=== PATIENT | female | born 1980 ===

== ENCOUNTER 2022-06-08 06:10 | Inpatient (IN) ==
[~2022-06-08 06:10] MED LIST: Buffered Lidocaine 1% SYRIN 1 ml INTRADERM ONE; Lactated Ringers 1000 ml BAG 1,000 ML IV SCH; Sodium Citrate/Citric Acid LIQ 15 ML UDC PO ONE
[2022-06-08] MEDS ORDERED: Rocuronium 50 mg VIAL 10 mg/ml 5 ml VIAL (50 mg) ONE (06:46)
[2022-06-08] MEDS ORDERED: Dexamethasone IV 4 MG/ML VIAL 1 ml VIAL ONE ×2 (06:46→06:58)
[2022-06-08] MEDS ORDERED: fentaNYL 250 mcg/5 ml 50 MCG/ML 5 ml VIAL (250 MCG) ONE (06:46)
[2022-06-08] MEDS ORDERED: Ondansetron 4 mg VIAL 2 MG/ML 2 ml VIAL ONE ×2 (06:46→06:58)
[2022-06-08] MEDS ORDERED: Lidocaine 2% PF 5 ML VIAL ONE (06:46)
[2022-06-08] MEDS ORDERED: Propofol 10 MG/ML 20 ML BTL ONE ×4 (06:46→12:03)
[2022-06-08] MEDS ORDERED: Midazolam 2 mg/2 ml VIAL 1 mg/ml 2 ml VIAL (2 mg) ONE (06:46)
[2022-06-08] MEDS ORDERED: ceFAZolin 2 GM in NS PREMIX 2 GM/100 ML BAG IVPB ONE (06:58)
[2022-06-08] MEDS ORDERED: Heparin 5000 UNITS/ML 1 mL VIAL ONE (06:58)
[2022-06-08] MEDS ORDERED: Scopolamine 1 mg/72hr PATCH ONE (06:58)
[2022-06-08] MEDS ORDERED: Gentamicin ADULT 40 MG/ML VIAL (2 ML VIAL = 80 MG) ONE ×2 (07:09→11:47)
[2022-06-08] MEDS ORDERED: Bupivacaine 0.25% SDV 30 ML ONE (07:10)
[2022-06-08] MEDS ORDERED: ceFAZolin VIAL VIAL ONE ×4 (07:10→11:48)
[2022-06-08] MEDS ORDERED: Povidone Iodine 5% OPTH 30 ML BTL ONE (07:10)
[2022-06-08] MEDS ORDERED: Bupivacaine 0.5% SDV PF 30ML VIAL ONE (07:10)
[2022-06-08] MEDS ORDERED: ISOSULFAN BLUE 1% 5 ML VIAL 10 MG/ML SUBCUT ONE (07:18)
[2022-06-08] MEDS ORDERED: Sodium Citrate/Citric Acid LIQ 15 ML UDC ONE (07:27)
[2022-06-08] MEDS ORDERED: Ketamine HCL 50 mg/ml 10 ml VIAL (500 MG) ONE (07:40)
[2022-06-08] MEDS ORDERED: HYDROmorphone 1 MG/1 ML SYRINGE IV PRN (08:06)
[2022-06-08] MEDS ORDERED: Naloxone 0.4 mg VIAL 0.4 mg/ml 1 ml VIAL IV PRN (08:06)
[2022-06-08] MEDS ORDERED: Prochlorperazine 5 mg/ml 2 ml VIAL (10 mg) IV PRN (08:06)
[2022-06-08] MEDS ORDERED: Acetaminophen IV 1 GM/100ML 1,000 MG/100 ML BAG IV ONE (10:48)
[2022-06-08] MEDS ORDERED: HYDROmorphone 0.5 MG/0.5 ML SYRINGE ONE (11:27)
[2022-06-08] MEDS ORDERED: Morphine 2 MG/ML SYRINGE IV PRN (11:32)
[2022-06-08] MEDS ORDERED: Benzocaine/Menthol LOZ PO PRN (11:33)
[2022-06-08] MEDS ORDERED: Scopolamine 1 mg/72hr PATCH TRANSDERM SCH (12:00)
[2022-06-08] MEDS ORDERED: Prochlorperazine 5 mg/ml 2 ml VIAL (10 mg) ONE (13:19)
[2022-06-08] MEDS: ceFAZolin VIAL 2 GM in NS 0.9% 100 ml BAG 100 ML IVPB SCH (16:38)
[2022-06-08] MEDS: Heparin 5000 UNITS/ML 1 mL VIAL SUBCUT SCH ×2 (18:08→22:21)
[2022-06-08] MEDS: HYDROcodone/ACETAMIN 5/325 mg TAB PO PRN (18:20)
[2022-06-09] MEDS: ceFAZolin VIAL 2 GM in NS 0.9% 100 ml BAG 100 ML IVPB SCH ×2 (00:36→08:45)
[2022-06-09] MEDS: HYDROcodone/ACETAMIN 5/325 mg TAB PO PRN (07:01)
[2022-06-09] MEDS: Heparin 5000 UNITS/ML 1 mL VIAL SUBCUT SCH (07:02)
[2022-06-09 12:11] VITALS: BP 97/61
[2022-06-09] MEDS ORDERED: ceFAZolin 2 GM PREMIX 2 GM/50 ML BAG IV SCH (16:00)
== END 2022-06-09 14:30 | disposition home or self-care (01) | DRG 362 ==
LOC: OR 06:10 → SSU 15:14
PROVIDERS: ADMIT Student in an Organized Health Care Education/Training Program; ATTEND Student in an Organized Health Care Education/Training Program